=== PATIENT | male | born 1990 | race Caucasian/White ===

== ENCOUNTER 2016-10-01 22:47 | Emergency (ER) | payer BC ==
[2016-10-01 22:54] VITALS: BP 151/91; PULSE 85; RESP 16; TEMP 98.5
[2016-10-01] MEDS ORDERED: SULFAMETHOX-TMP 800-160MG 1 EACH TAB PO STA (23:15)
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
== END 2016-10-01 23:36 | disposition home or self-care (01) ==
LOC: EC 22:47
DX: L03.114 Cellulitis of left upper limb (principal); W57.XXXA Bitten or stung by nonvenomous insect and other nonvenomous arthropods, initial encounter
CPT/HCPCS: 99282

== ENCOUNTER → 2018-11-29 | Outpatient (CLI) | payer OTHER ==
--- NOTE | 2018-11-29 15:40 | MR ---
EXAMINATION TYPE: MR shoulder LT wo con DATE OF EXAM: 11/29/2018 COMPARISON: None HISTORY: Posttraumatic pain in left shoulder TECHNIQUE: Multiplanar, multisequence imaging of the left shoulder is performed without contrast. FINDINGS: Rotator Cuff: There is abnormal signal of the insertional fibers of the supraspinatus, predominantly of the anterior insertional fibers at their bursal surface and of the insertional fibers of the infra spinatus compatible with mild tendinopathy. Teres minor and subscapularis tendons are of normal signa l and morphology. Acromioclavicular Joint: There is mild acromioclavicular arthropathy seen as very small marginal oste ophytes and mild capsular hypertrophy are noted. Glenohumeral Joint: No significant joint space narrowing. Labrum: There is a tear of the posterior glenoid labrum extending from approximately 2:00 to 5:00. Th is is demonstrated on axial PD fat-sat image 13, coronal T2 fat-sat image 21, and sagittal T2 fat sat image 19. Biceps Tendon: The long head of biceps is in normal location within bicipital groove. Bone marrow signal: There is an osseous contusion of the anterior superior humeral head demonstrating hypointensity on T1 and hyperintensity on fluid sensitive sequences. This noncircumscribed area saul ures approximately 2.6 cm. No focal linear fracture is seen. Other: Trace amount of fluid is seen within the subcoracoid bursa. IMPRESSION: 1. Nondisplaced posterior glenoid labrum tear extending from approximately 2-5 o'clock. 2. Osseous contusion of the anterior superior humeral head without visible fracture line. 3. Mild insertional fiber supraspinatus and infraspinatus tendinopathy. No discrete rotator cuff tear .
== END | disposition home or self-care (01) ==
LOC: RADMRIMAIN 12:44
PROVIDERS: ATTEND Physician Assistant Medical
DX: S43.492A Other sprain of left shoulder joint, initial encounter (principal)

== ENCOUNTER 2019-03-12 02:04 | Emergency (ER) | payer BC ==
[2019-03-12] MEDS ORDERED: SODIUM CHLORIDE 0.9% 1,000 ML IV ONE (02:12)
[2019-03-12] MEDS ORDERED: ONDANSETRON 4 MG/2 ML VIAL IVP STA (02:12)
[2019-03-12 02:16] VITALS: BP 139/89; PULSE 95; RESP 18; TEMP 97.7
[2019-03-12 02:29] LABS: Basophils % (A) 0 %; Eosinophils % (A) 0 %; HCT 45.4 % (39.0-53.0); Lymphocytes # (A) 1.4 k/uL (1.0-4.8); Lymphocytes % (A) 18 %; MCH 30.8 pg (25.0-35.0); MCHC 35.3 g/dL (31.0-37.0); MCV 87.3 fL (80.0-100.0); Monocytes # (A) 0.3 k/uL (0-1.0); Monocytes % (A) 3 %; Neutrophils # (A) 5.9 k/uL (1.3-7.7); Neutrophils % (A) 77 %; Platelet Count 231 k/uL (150-450); RDW 12.3 % (11.5-15.5); WBC 7.7 k/uL (3.8-10.6)
[2019-03-12 02:35] LABS: Partial Thromboplastin Time 24.8 sec (22.0-30.0); Prothrombin Time 10.3 sec (9.0-12.0)
[2019-03-12 02:36] LABS: ALT 37 U/L (21-72); AST 25 U/L (17-59); African American GFR (CKD) >90 (>60 ml/min/1.73 sqM); Alkaline Phosphatase 67 U/L (38-126); Anion Gap 14 mmol/L; Blood Urea Nitrogen 10 mg/dL (9-20); Calcium 9.8 mg/dL (8.4-10.2); Carbon Dioxide 25 mmol/L (22-30); Chloride 109 mmol/L (98-107); Glucose 130 mg/dL (74-99); Potassium 4.1 mmol/L (3.5-5.1); Sodium 148 mmol/L (137-145); Total Bilirubin 0.6 mg/dL (0.2-1.3); Total Protein 8.2 g/dL (6.3-8.2)
[2019-03-12] MEDS ORDERED: LORazepam 2 MG/ML INJ IV STA (02:36)
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
[2019-03-12 02:43] LABS: Alcohol 245 mg/dL
--- NOTE | 2019-03-12 03:30 | CT ---
EXAM: CT Head Without Intravenous Contrast CLINICAL HISTORY: History of fall. Headache. TECHNIQUE: Axial computed tomography images of the head/brain without intravenous contrast. CTDI is 45.2 mGy and DLP is 1008 mGy-cm. This CT exam was performed using one or more of the following dose reduction techniques: automated exposure control, adjustment of the mA and/or kV according to patient size, and/or use of iterative reconstruction technique. COMPARISON: None. FINDINGS: Brain: No midline shift or mass-effect. No abnormal extra-axial collection is noted. No hemorrhage. No significant white matter disease. Ventricles: The ventricular system is age appropriate. Bones/joints: The calvarium is unremarkable. No acute fracture. Soft tissues: Unremarkable. Sinuses: Visualized sinuses are unremarkable. Mastoid air cells: Mastoid air cells are well pneumatized. IMPRESSION: No acute intracranial pathology is noted. EXAM: CT Cervical Spine Without Intravenous Contrast CLINICAL HISTORY: History of fall. Headache. TECHNIQUE: Axial computed tomography images of the cervical spine without intravenous contrast. CTDI is 15 mGy and DLP is 411.2 mGy-cm. This CT exam was performed using one or more of the following dose reduction techniques: automated exposure control, adjustment of the mA and/or kV according to patient size, and/or use of iterative reconstruction technique. COMPARISON: None. FINDINGS: Vertebrae: There is straightening and reversal of the curvature of the cervical spine suggestive of muscle spasm. There is a normal relationship of C1 and C2. Cervical vertebral bodies are maintained in height. Spinous processes are unremarkable. Transaxial images of the cervical spine revealed no significant new focal abnormalities. No acute fracture. Discs/spinal canal/neural foramina: No acute findings. No spinal canal stenosis. Soft tissues: See below. Lung apices: The airway is patent. Lung apices are unremarkable. Paraspinal musculature and regional soft tissues are within normal limits. IMPRESSION: No evidence of acute injury to the cervical spine. Straightening and reversal of the curvature of the cervical spine possibly on the basis of muscle spasm. Clinical correlation is advised.
== END 2019-03-12 03:47 | disposition home or self-care (01) ==
LOC: EC 02:04
DX: F07.81 Postconcussional syndrome (principal); F10.129 Alcohol abuse with intoxication, unspecified; W22.8XXA Striking against or struck by other objects, initial encounter
CPT/HCPCS: 36415; 80053; 85025; 85610; 85730; 80320; 72125; 70450; 99285; 96374; 96375; 96361; J2060; J2405

== ENCOUNTER 2021-08-12 22:00 | Emergency (ER) | payer BC, OTHER ==
[2021-08-12] MEDS ORDERED: DIPH,PERTUS(ACELL)TETVAC-LF 0.5 ML VIAL IM ONE (22:13)
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
[2021-08-12 22:22] VITALS: BP 128/108; PULSE 77; RESP 24; TEMP 98.1
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
[2021-08-12 22:29] LABS: Glucose,Whole Blood 111 mg/dL (75-99)
[2021-08-12 22:30] LABS: Basophils % (A) 0 %; Eosinophils % (A) 0 %; HCT 43.2 % (39.0-53.0); HGB 14.6 gm/dL (13.0-17.5); Lymphocytes # (A) 1.8 k/uL (1.0-4.8); Lymphocytes % (A) 20 %; MCH 30.4 pg (25.0-35.0); MCHC 33.8 g/dL (31.0-37.0); Mean Platelet Volume 7.6; Monocytes # (A) 0.4 k/uL (0-1.0); Monocytes % (A) 5 %; Neutrophils # (A) 6.7 k/uL (1.3-7.7); Neutrophils % (A) 74 %; Platelet Count 249 k/uL (150-450); RDW 12.4 % (11.5-15.5)
[2021-08-12] MEDS ORDERED: MORPHINE SULFATE 4 MG/ML SYRINGE IV STA (22:32)
[2021-08-12 22:39] LABS: Partial Thromboplastin Time 22.2 sec (22.0-30.0); Prothrombin Time 11.2 sec (9.0-12.0)
[2021-08-12 22:42] LABS: ALT 28 U/L (4-49); AST 35 U/L (17-59); African American GFR (CKD) >90 (>60 ml/min/1.73 sqM); Albumin 4.5 g/dL (3.5-5.0); Alkaline Phosphatase 53 U/L (38-126); Anion Gap 11 mmol/L; Blood Urea Nitrogen 12 mg/dL (9-20); Calcium 8.7 mg/dL (8.4-10.2); Carbon Dioxide 23 mmol/L (22-30); Chloride 105 mmol/L (98-107); Glucose 111 mg/dL (74-99); Non-African American GFR(CKD) >90 (>60 ml/min/1.73 sqM); Potassium 3.8 mmol/L (3.5-5.1); Sodium 139 mmol/L (137-145); Total Bilirubin 0.8 mg/dL (0.2-1.3); Total Protein 7.4 g/dL (6.3-8.2)
[2021-08-12] MEDS ORDERED: HYDROmorphone 1 MG/ML 1 ML SYRINGE IVP STA ×2 (22:43→23:26)
[2021-08-12 22:46] LABS: Alcohol 130 mg/dL
[2021-08-12] MEDS ORDERED: SODIUM CHLORIDE 0.9% 1,000 ML IV STA (23:26)
[2021-08-12] MEDS ORDERED: SODIUM CHLORIDE 0.9% 500 ML 500 ML IV STA (23:26)
== END 2021-08-13 00:48 | disposition other institution (70) ==
LOC: EC 22:00
DX: S82.201A Unspecified fracture of shaft of right tibia, initial encounter for closed fracture (principal); Z20.822 Contact with and (suspected) exposure to COVID-19; V89.2XXA Person injured in unspecified motor-vehicle accident, traffic, initial encounter
CPT/HCPCS: 36415; 86900; 86901; 80053; 83605; 84484; 85025; 85610; 85730; 86850; 80320; 87635; 72170; 73590; 71045; 90715; 99285; 96365; 90471; 96375; 96376; J2270; J0690; J1170 ×2

== ENCOUNTER → 2021-08-20 | Outpatient (CLI) | payer OTHER ==
--- NOTE | 2021-08-20 11:53 | XR ---
EXAMINATION TYPE: XR tibia fibula LT DATE OF EXAM: 08/20/2021 CLINICAL HISTORY: pain TECHNIQUE: AP and lateral images of the left tibia and fibula are obtained. COMPARISON: 08/12/2021 FINDINGS: Previously noted fracture of the middle one third of the left tibia and fibula are redemons trated. There is an intramedullary praveena placement within the tibia with proximal and distal fixating s crews. Alignment is improved. Several loose fragments are noted. Persistent displacement fibular comp onent of approximately 25%. IMPRESSION: As above
== END | disposition home or self-care (01) ==
LOC: RADXRYALE 11:26
PROVIDERS: ATTEND Physician Assistant
DX: S82.192S Other fracture of upper end of left tibia, sequela (principal); S82.292S Other fracture of shaft of left tibia, sequela; X58.XXXS Exposure to other specified factors, sequela

== ENCOUNTER → 2021-11-20 | Outpatient (CLI) | payer OTHER ==
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
== END | disposition home or self-care (01) ==
LOC: RADMRIMAIN 13:22
PROVIDERS: ATTEND Orthopaedic Surgery Orthopaedic Trauma
DX: M79.672 Pain in left foot (principal); M79.89 Other specified soft tissue disorders